=== PATIENT | male | born 1980 | race Caucasian/White ===

== ENCOUNTER 2019-02-06 20:05 | Emergency (ER) | payer OTHER ==
[2019-02-06] MEDS ORDERED: TETRACAINE HCL 0.5% OPH SOLN 4 ML OU ONE (21:19)
[2019-02-06] MEDS ORDERED: POLYMYXIN B SULFATE/TMP OPH SOLN (10 ML/ER DISP) OS ONE (22:22)
[2019-02-06] MEDS ORDERED: DIPH/PERTUSS(ACELL)/TETANUS VAC/PF 0.5 ML SYR (>=10YO) IM ONE (22:23)
--- NOTE | 2019-02-06 22:26 | ER Document Report ---
ED Eye Complaint - General Chief Complaint: Foreign Body in Eye Stated Complaint: EYE INJURY Time Seen by Provider: 02/06/19 21:19 Mode of Arrival: Ambulatory Information source: Patient TRAVEL OUTSIDE OF THE [place] IN LAST 30 DAYS: No - HPI Patient complains to provider of: LEFT EYE PAIN Notes: Patient here with complaints of left eye pain. He states he was under a trailer pulling wire on and thinks he may have potentially gotten something into his eye although he denies any specific injury. Since that time he has felt like there is something in his eye. He complains of pain and redness. He is now got some tearing and states that he when he wakes up it matted shut. No blurred or loss vision. No fever. No redness, swelling or pain around the eye. He denies any nausea, vomiting, diarrhea. There was no chemical exposure he does not wear contacts. Pain is constant, moderate, nothing makes it better or worse. He denies any photophobia. No chest pain or shortness of breath. No other complaints at this time. Unsure of his last tetanus. Past Medical History - Social History Smoking Status: Unknown if Ever Smoked Family History: Reviewed & Not Pertinent Review of Systems - Review of Systems -: Yes All other systems reviewed and negative Physical Exam - Vital signs Vitals: Temp Pulse Resp BP Pulse Ox 98 F 63 16 135/83 H 98 02/06/19 20:12 02/06/19 20:12 02/06/19 20:12 02/06/19 20:12 02/06/19 20:12 - Notes Notes: GENERAL: alert, cooperative, nontoxic, no distress. HEAD: normocephalic, atraumatic EYES: Left conjunctival with injection. No green drainage. No periorbital swelling, redness or tenderness. Pupils equal round react to light. No foreign body seen. Upper lid everted with no foreign body identified. Tetracaine drops were applied with significant improvement of the patient's eye pain. There is no hyphema. Patient is noted to have several punctate areas of dye uptake to the cornea with no linear abrasions identified. No dendritic lesions. Negative Mike sign. EARS: no external swelling, no external redness NOSE: atraumatic, no external swelling MOUTH/THROAT: mucous membranes moist and pink NECK: soft, supple, full range of motion, no meningismus. CHEST: no distress, lungs clear and equal throughout. No wheezing, rales, rhonchi. CARDIAC: regular rate and rhythm, no murmur, normal capillary refill, normal pulses. BACK: full range of motion, no CVA tenderness. EXTREMITIES: full range of motion of all extremities. No redness, no swelling. NEURO: alert and oriented 3, no focal deficits, full range of motion of all extremities. PYSCH: appropriate mood, affect. Patient is cooperative. SKIN: pink, warm, dry, no rash. - HEENT Visual acuity- Right eye: 20/50 Visual acuity- Left eye: 20/50 Visual acuity- Both eyes: 20/40 Corrective lenses worn: No Course - Re-evaluation Re-evalutation: 02/06/19 22:24 Patient is nontoxic-appearing with stable vitals. Patient here with complaints of left eye pain. He thinks he may have gotten something in his eye when he was pulling cable on . There is no specific injury that occurred. There was no chemical injury. He does not wear contacts. See nursing notes for visual acuity. He denies any visual loss. He has noted to have some conjunctival injection with no drainage. There is no sign of periorbital or orbital cellulitis. No hyphema. Pupils are normal. There is no foreign body identified. He has several punctate areas of dye uptake to the cornea. Patient will be given a dose of Polytrim in the emergency department discharged home with Polytrim eyedrops. His tetanus will be updated as he is not sure when his last one was. He instructed to follow-up with ophthalmology if there is no improvement in the next 2 days, sooner for worsening pain, fever, redness, swelling, blurred or loss vision, any further concerns. The patient's emergency department workup and current diagnosis were explained to the patient and or family. Follow-up instructions were provided. Medications if prescribed were discussed. Instructions for when to return to the emergency department including specific worrisome symptoms were discussed with the patient and/or family. - Vital Signs Vital signs: Temp Pulse Resp BP Pulse Ox 98 F 63 16 135/83 H 98 02/06/19 20:12 02/06/19 20:12 02/06/19 20:12 02/06/19 20:12 02/06/19 20:12 Discharge - Discharge Clinical Impression: Uveitis Condition: Stable Disposition: HOME, SELF-CARE Instructions: Corneal Abrasion ([facility]) Additional Instructions: Take medications as prescribed. Tylenol Motrin as needed for pain. Keep eye clean and dry. Follow-up with ophthalmology if not better in the next 2 days, sooner for worsening pain, fever, blurred or loss vision, persistent vomiting, redness or swelling around the outside of the eye, or for any further concerns. Prescriptions: Polymyxin B Sulfate/Tmp [Polytrim Oph Soln 10 ml] 2 drop OP Q6H #1 bottle Forms: Elevated Blood Pressure, Smoking Cessation Education Referrals: [facility] [Provider Group] - Follow up as needed OFFICE [facility] [Provider Group] - Follow up as needed OPHTHAMOLOGY [Provider Group] - Follow up as needed
[2019-02-06 22:34] VITALS: BP 143/70
== END 2019-02-06 23:04 | disposition home or self-care (01) ==
LOC: ER 20:05
DX: H20.9 Unspecified iridocyclitis (principal); H57.12 Ocular pain, left eye; Z23 Encounter for immunization
CPT/HCPCS: 99283; 90471; 90715; J3490 ×2